=== PATIENT | female | born 1975 | race Caucasian/White ===

== ENCOUNTER 2017-03-26 08:48 | Inpatient (IN) | payer OTHER ==
[2017-03-22 16:58] VITALS: BMI 41.1
--- NOTE | 2017-03-26 10:57 | HP ---
Admitting History and Physical - Admission Chief Complaint: Morbid obesity History of Present Illness: 41 female presents for vertical sleeve gastrectomy History Source: Patient Limitations to Obtaining History: No Limitations - Past Medical History ...LMP: 03/19/17 - Past Surgical History Past Surgical History: Yes: - Smoking History Smoking history: Former smoker Have you smoked in the past 12 months: No Aproximately how many cigarettes per day: 1 If you are a former smoker, when did you quit?: 5YRS - Alcohol/Substance Use Hx Alcohol Use: No Home Medications - Allergies Allergies/Adverse Reactions: Allergies Allergy/AdvReac Type Severity Reaction Status Date / Time No Known Drug Allergies Allergy Verified 03/22/17 17:08 SURGICAL TAPE Allergy "BURN-LIKE Uncoded 03/22/17 17:08 RASH" - Home Medications Home Medications: Ambulatory Orders No Home Medications 0 dose .ROUTE UTDICT 03/30/12 Family Disease History - Family Disease History Family History: Unremarkable Review of Systems - Review of Systems Constitutional: denies: Chills, Fever HENT: reports: No Symptoms Neck: reports: No Symptoms Cardiovascular: denies: Chest Pain Respiratory: denies: Cough Gastrointestinal: denies: Abdominal Pain Neurological: denies: Change in LOC Pain Intensity: 0 Physical Examination Vital Signs: Vital Signs Temperature 98.4 F 03/26/17 09:25 Pulse Rate 95 H 03/26/17 09:25 Respiratory Rate 18 03/26/17 09:25 Blood Pressure 146/81 03/26/17 09:25 O2 Sat by Pulse Oximetry (%) 100 03/26/17 09:37 Constitutional: Yes: Calm HENT: Yes: WNL Neck: Yes: Supple Cardiovascular: Yes: Regular Rate and Rhythm Respiratory: Yes: CTA Bilaterally Gastrointestinal: Yes: Soft, Abdomen, Obese. No: Tenderness Extremities: Yes: WNL Neurological: Yes: Alert, Oriented Problem List - Problems (1) Morbid obesity due to excess calories Code(s): E66.01 - MORBID (SEVERE) OBESITY DUE TO EXCESS CALORIES Assessment/Plan Robotic vertical sleeve gastrectomy possible EGD possible liver biopsy
[2017-03-26] MEDS ORDERED: ceFAZolin SODIUM 1 GM VIAL IVPB ONE (12:20)
[2017-03-26] MEDS ORDERED: HYDROmorphone HCL/PF 1 MG/ML VIAL (FOR PYXIS CHARGING ONLY) ONE ×2 (14:05→15:03)
--- NOTE | 2017-03-26 14:33 | OP ---
Operative Note - Note: Operative Date: 03/26/17 Pre-Operative Diagnosis: Morbid obesity Operation: Robotic vertical sleeve gastrectomy, EGD Post-Operative Diagnosis: Same as Pre-op Surgeon: Charanjit Kahn Director Targeted Marketing: Odette Duckworth Anesthesia: General Specimens Removed: Greater curvature of the stomach Estimated Blood Loss (mls): 30 Drains & Tubes with Location: 36 fr Bougie Operative Report Dictated: Yes
[2017-03-26] MEDS ORDERED: ONDANSETRON 4 MG/2 ML VIAL IVPUSH PRN (14:36)
[2017-03-26] MEDS ORDERED: LACTATED RINGERS SOLUTION 1,000 ML IV SCH (14:45)
[2017-03-26] MEDS ORDERED: SODIUM CHLORIDE 1,000 ML IV SCH (14:45)
[2017-03-26] MEDS ORDERED: ceFAZolin SODIUM 1 GM VIAL ONE (14:59)
[2017-03-26] MEDS ORDERED: MIDAZOLAM HCL 2 MG/2 ML SINGLE DOSE VIAL ONE (14:59)
[2017-03-26] MEDS ORDERED: DEXAMETHASONE SOD PHOSPHATE 4 MG/1 ML VIAL ONE (14:59)
[2017-03-26] MEDS ORDERED: SODIUM CHLORIDE 0.9% P/F 10 ML VIAL IJ ONE (15:00)
[2017-03-26] MEDS ORDERED: DESFLURANE GAS 240 ML BOTTLE IH ONE (15:01)
[2017-03-26] MEDS ORDERED: ACETAMINOPHEN INJECTION 100 ML IVPB ONE (15:03)
[2017-03-26] MEDS ORDERED: PROPOFOL 20 ML ONE (15:05)
[2017-03-26] MEDS: ACETAMINOPHEN 1000 MG/100 ML VIAL (NON FORMULARY) IVPB SCH ×2 (15:05→23:29)
[2017-03-26] MEDS ORDERED: SUCCINYLCHOLINE CHLORIDE 200 MG/10 ML VIAL ONE (15:06)
[2017-03-26] MEDS ORDERED: METOCLOPRAMIDE HCL INJECTION 10 MG/2 ML VIAL ONE (15:27)
[2017-03-26] MEDS: METOCLOPRAMIDE HCL INJECTION 10 MG/2 ML VIAL IVPUSH SCH ×2 (15:28→20:36)
--- NOTE | 2017-03-26 15:31 | SPEC ---
DATE OF OPERATION: 03/26/2017 SURGEON: Charanjit Kahn MD NUCLEAR PLANT INSTRUMENT TECHNICIAN: MARCELO Lozada PREOPERATIVE DIAGNOSIS: Morbid obesity. POSTOPERATIVE DIAGNOSIS: Morbid obesity. PROCEDURE: Robotic vertical sleeve gastrectomy and upper endoscopy. SPECIMEN: Greater curvature of the stomach. ESTIMATED BLOOD LOSS: 30 mL TUBES: A 36-Uzbek bougie. DRAINS: None. ANESTHESIA: GET. REASON FOR PROCEDURE: This is a 41-year-old female who presented to the hospital for weight loss options. After describing different options, she decided to proceed with a robotic vertical sleeve gastrectomy. RISKS AND BENEFITS: After describing the different options for management of weight loss, the patient decided to proceed with a robotic laparoscopic, possible open vertical sleeve gastrectomy. The patient was seen by the respective subspecialties and cleared for surgery. The risks and benefits of the procedure were explained. These included bleeding, infection, hernia, ID, DVT, PE, injury to surrounding structures including the liver, colon, bowel, spleen, esophagus, vessel injury, nerve injury, weight regain, gastric leak, staple line leak, sleeve leak, obstruction, vitamin deficiency, hair loss, and as some of the possible complications. The patient understood and signed informed consent. DESCRIPTION OF PROCEDURE: The patient was placed supine on the operating room table. The patient underwent general endotracheal intubation. A England catheter was inserted by the nursing staff. The arms were brought out at 90 degrees and secured. A foot board was placed, and the legs were secured laterally with padding. The abdomen was prepped and draped in the usual sterile fashion. Timeout was performed. An incision was made superior and to the left of the umbilicus. A Veress needle was inserted. Pneumoperitoneum was established. Subsequently, the Veress needle was removed. An 8-mm optical robotic trocar was placed under direct visualization with the laparoscope. Inspection of the abdominal cavity was performed. An 8-mm trocar was then placed in the left abdominal wall approximately 6 to 7 cm to the left of the initial trocar. A 12-mm robotic trocar was then placed in the right abdominal wall approximately 6 to 7 cm to the right of the initial trocar and an 8-mm robotic trocar placed 6 to 7 cm lateral to the 12-mm trocar. A stab wound was made in the subxiphoid area and a Gabriela clamp inserted and removed to dilate the tract. A Matthew liver retractor was inserted. The post was secured at the bedside by the nursing staff. The patient was placed in steep reverse Trendelenburg position, and the Matthew liver retractor was used to secure the liver towards the anterior abdominal wall. The robot was brought over the field and docked. Dissection was then performed at the console. The pylorus was identified and 6 cm proximal to it, the lesser sac was entered using the vessel sealer. From this point cephalad, all lateral attachments to the greater curvature of the stomach, including the short gastric vessels, were ligated using the vessel sealer towards the gastrosplenic and gastrophrenic ligaments. Once this was done in its entirety, all tubes within the nasal or oropharyngeal cavity, including a temperature probe, were confirmed to have been removed by Anesthesia. The bougie was then inserted by Anesthesia. Transection of the stomach was then begun, staying adjacent to the bougie but away from the angularis. Transection of the stomach was performed near the portion of the stomach where the lesser sac was entered. Two robotic green geovanna were used at this location. Robotic blue geovanna were then used for the remainder of the transection until the greater curvature of the stomach was fully transected. Again, this was done staying close to the bougie. Care was taken to stay away from the angle of His cephalad. The staple line was then inspected. Hemostasis was identified. A leak test was then performed. The stomach was clamped distally to the staple line. Irrigation solution was placed in the left upper quadrant and air insufflated by Anesthesia into the sleeve. No leaks were identified and no obstruction was identified. This was done throughout the entirety of the staple line. At this point, the irrigation solution was suctioned and again hemostasis noted. The robotic instruments were then removed. The robot was undocked and removed from the operative field. The 12-mm robotic trocar was removed and the specimen removed from this site using a sponge stick vines. The specimen was inspected and the Veress needle inserted. The specimen insufflated adequately and no leak was identified. The staple line was noted to be straight and intact. A Garett-Trisha device was then used to close the fascia with a 0 Vicryl suture at this site. The liver retractor was removed under direct visualization. Pneumoperitoneum was desufflated, and the fascial suture was secured. Hemostasis was noted at all incision sites, and Marcaine was injected at all incision sites. All incision sites were closed using 4-0 Biosyns. Sterile dressings were applied. The patient tolerated the procedure well and was transferred to the recovery room in stable condition, with the England catheter intact. The patient was sent to the telemetry unit for monitoring. In addition, in order to further assess for a leak or obstruction, upper endoscopy was performed. The entirety of the esophagus, GE junction, staple line to the level of the pylorus were inspected. No obstruction or leak was identified. The stomach was suctioned, and the scope was fully removed. The patient tolerated the procedure well and was transferred to recovery room in stable condition. Latricia [id number]
[2017-03-26 16:06] LABS: MCH 31.5 pg (25.7-33.7); MCHC 35.1 g/dl (32.0-36.0); MEAN CELL VOLUME 89.8 fl (80-96); PLATELET COUNT 226 K/MM3 (134-434); RDW 12.5 % (11.6-15.6); WHITE BLOOD COUNT 12.3 K/mm3 (4.0-10.0)
[2017-03-26 16:32] LABS: ALBUMIN 3.8 g/dl (3.4-5.0); ANION GAP 13 (8-16); CALCIUM 8.2 mg/dL (8.5-10.1); CO2 21 mmol/L (21-32); GLUCOSE,RANDOM 103 mg/dL (74-106)
[2017-03-26] MEDS ORDERED: NEOSTIGMINE METHYLSULFATE 0.5 MG/ML - 10 ML MDV ONE (16:36)
[2017-03-26] MEDS ORDERED: GLYCOPYRROLATE 0.2 MG/1 ML VIAL ONE (16:37)
[2017-03-26 16:39] LABS: ALK PHOS 61 U/L (45-117); BILIRUBIN,TOTAL 1.8 mg/dL (0.2-1.0); CREATININE 0.9 mg/dL (0.55-1.02); SGOT/AST 33 U/L (15-37); SGPT/ALT 49 U/L (12-78); TOT PROT 6.9 g/dl (6.4-8.2)
--- NOTE | 2017-03-26 17:13 | SURG ---
Surgery Physicist Cryogenics Note Physicist Cryogenics: Odette Duckworth PA-C Date of Service: 03/26/17 Diagnosis: Morbid obesity Procedure: Robotic vertical sleeve gastrectomy, EGD I was present for the entirety of the operative procedure. For further detail, please refer to operative report. Visit type - Case Type Case Type: Scheduled Admission - Emergency Emergency Visit: No - New patient This patient is new to me today: Yes Date on this admission: 03/26/17
[2017-03-26] MEDS: ONDANSETRON 4 MG/2 ML VIAL IVPUSH SCH (20:36)
[2017-03-26] MEDS: ENOXAPARIN NA (PORCINE) 40 MG/0.4 ML DISP.SYRIN SQ SCH (20:59)
[2017-03-26] MEDS: FAMOTIDINE 20 MG/50 ML IVPB 50 ML IVPB SCH (21:00)
[2017-03-26] MEDS: HYDROmorphone HCL CARPU-JECT 1 MG/1 ML DISP.SYRIN IVPB PRN (23:28)
[2017-03-27] MEDS: ONDANSETRON 4 MG/2 ML VIAL IVPUSH SCH ×6 (01:30→21:04)
[2017-03-27] MEDS: METOCLOPRAMIDE HCL INJECTION 10 MG/2 ML VIAL IVPUSH SCH ×4 (03:53→21:04)
[2017-03-27] MEDS: ACETAMINOPHEN 1000 MG/100 ML VIAL (NON FORMULARY) IVPB SCH (03:54)
[2017-03-27 08:20] LABS: MCH 31.2 pg (25.7-33.7); MEAN CELL VOLUME 89.2 fl (80-96); MEAN PLT VOLUME 9.6 fl (7.5-11.1); PLATELET COUNT 220 K/MM3 (134-434); RDW 12.4 % (11.6-15.6); WHITE BLOOD COUNT 10.5 K/mm3 (4.0-10.0)
[2017-03-27] MEDS: FAMOTIDINE 20 MG/50 ML IVPB 50 ML IVPB SCH ×2 (09:27→21:03)
[2017-03-27] MEDS: ENOXAPARIN NA (PORCINE) 40 MG/0.4 ML DISP.SYRIN SQ SCH ×2 (09:27→21:06)
[2017-03-27 09:37] LABS: ALBUMIN 3.2 g/dl (3.4-5.0); ALK PHOS 52 U/L (45-117); ANION GAP 16 (8-16); BILIRUBIN,TOTAL 1.8 mg/dL (0.2-1.0); CO2 18 mmol/L (21-32); CREATININE 0.6 mg/dL (0.55-1.02); GLUCOSE,RANDOM 78 mg/dL (74-106); SGOT/AST 24 U/L (15-37); SGPT/ALT 37 U/L (12-78); TOT PROT 6.2 g/dl (6.4-8.2)
[2017-03-27 09:58] LABS: CALCIUM 7.5 mg/dL (8.5-10.1)
--- NOTE | 2017-03-27 10:05 | PN ---
Progress Note (short form) - Note Progress Note: Pt with complaints of RUQ pain/shoulder pain. Slight nausea no emesis. Assisted with getting oob to chair this am. Completed her study this am. Vital Signs Period Temp Pulse Resp BP Sys/Humphrey Pulse Ox Last 24 Hr 98.4 F-98.6 F 81-101 16-20 122-169/75-99 93-100 GEN: A&0x3, NAD CV:RR, mild tachycardic Lungs: CTA b/l ABD: soft, non-distended, mild RUQ/abd tendneress. Inc c/d/i mild ecchymosis to right mid line incision. UGI: no extravasation/leak or obstruction CBC, BMP 03/27/17 05:35 03/27/17 05:35 A/P: 41 yo female s/p Rotobic asissted sleeve gastrectomy Begin POD#1 bariatric diet OOB to chair ambulate DVT ppx with SCD/ambulate/lovenox SQ Oral pain management <Odette Duckworth - Last Filed: 03/27/17 10:06> - Note Progress Note: Agree POD 1 Pain controlled No nausea Abd soft UGI- no leak/obstruction Clears OOB Discharge home <Charanjit Kahn - Last Filed: 03/27/17 11:17> Problem List - Problems (1) Morbid obesity due to excess calories Code(s): E66.01 - MORBID (SEVERE) OBESITY DUE TO EXCESS CALORIES <Charanjit Kahn - Last Filed: 03/27/17 11:17>
[2017-03-27] MEDS ORDERED: SODIUM CHLORIDE 1,000 ML IV SCH (10:15)
--- NOTE | 2017-03-27 10:53 | PN ---
Progress Note (short form) - Note Progress Note: Post op day#1.S/P Gastriv sleve placement under GA uneventful.Patient stable and c/o some pain for which she is on medication.No any anesthesia related problem.Patient Dc from the anesthesia care.
--- NOTE | 2017-03-27 11:18 | DS ---
Physical Examination Vital Signs: Vital Signs Temperature 97.8 F 03/27/17 10:00 Pulse Rate 101 H 03/27/17 10:00 Respiratory Rate 20 03/27/17 10:00 Blood Pressure 179/100 03/27/17 10:00 O2 Sat by Pulse Oximetry (%) 95 03/27/17 10:00 Constitutional: Yes: Calm HENT: Yes: WNL Neck: Yes: Supple Cardiovascular: Yes: Regular Rate and Rhythm Respiratory: Yes: CTA Bilaterally Gastrointestinal: Yes: Soft Neurological: Yes: Alert, Oriented Labs: CBC, BMP 03/27/17 05:35 03/27/17 05:35 Discharge Summary Reason For Visit: OBSTRUCTIVE SLEEP APNEA (ADULT) (PEDIATRIC) Current Active Problems Morbid obesity due to excess calories (Acute) Procedures: Principal: Vertical sleeve gastrectomy, EGD Condition: Stable - Instructions Diet, Activity, Other Instructions: [address] [facility] Charanjit Kahn M.D. [address] [place] [address], [address] [facility] [place] [address] Robotic, Bariatric and General Surgery Postoperative Instructions for Bariatric Surgery Activity: Resume normal everyday activity as tolerated. You may walk and climb stairs without any limitation. We encourage you to walk as often as you can Do not lift anything more than 10 pounds for 8 weeks. At that time, you can return to full activity, including the gym, without limitation. Do not drive a motor vehicle while taking prescribes narcotic pain medication. Wound Care: If you have a bandage in place, leave it on for 3 days. At that time you may remove the outer bandage. If there are strips of tape on the skin after removing the outer bandage, leave them in place. They will fall off by themselves. Do not remove them. If there is clear glue on the skin after removing the outer bandage, leave it in place. Do not pick at it or peel it off. You may shower after taking the outer bandage off, 3 days after your surgery. If incisions become red, warm or open, please call the office. Diet: Continue a sugar-free, non-carbonated Clear liquid diet three times a day for the first week-Stage I diet. In addition, you should drink 8 ounces of water every hour. When drinking, sips should be slow and steady, not large and quick. After the first week, call the office to be advanced to the next dietary stage. Do not advance stages until instructed. Your diet will be advanced over the phone each week. Medications/Pain Management: You may resume previous medications unless told otherwise. The pills may be swallowed whole or broken if scored. You may take the prescribed narcotic pain medication as needed. If the narcotic medication is not needed for pain control, you may take Tylenol. Avoid all other pain medications including Advil, Ibuprofen, Motrin, Aspirin, Naprosyn, Aleve, Celebrex. You will receive Pepcid. Please take this twice a day as prescribed. Dizziness,Headaches/Gas Pain: Make sure you are getting enough fluids daily. Patients on diuretics or water pills may need medication adjusted. Some fluids such as broth or Gatorade may help. Gas pains are common in the first few weeks after surgery. At times they can be worse than surgical pain. Walking can help. You can also use Mylanta, Maalox, or Gas-X. Vomiting/Nausea: This may occur if you eat too fast, don't chew, or eat too much. Go back to fluids. If the vomiting or nausea persists, call the office. Constipation/Diarrhea: You may experience a change in bowel habits. Many things affect this, including a decrease in food intake, not enough fluid and taking pain medication. Some people experience diarrhea after the barium swallow in x-ray. If either persist, call the office. Follow up: Call the office at [phone] for an appointment 2 weeks after your surgical procedure. Disposition: HOME - Home Medications Comprehensive Discharge Medication List: Ambulatory Orders RX: No Home Medications 0 dose .ROUTE UTDICT 03/30/12 Famotidine [Pepcid] 20 mg PO BID #60 tablet 03/26/17 Oxycodone HCl/Acetaminophen [Percocet 5-325 mg Tablet] 1 - 2 tab PO Q6H #28 tab MDD 4 03/26/17
[2017-03-27] MEDS ORDERED: LOSARTAN 50MG/HCTZ 12.5MG 1 TAB (FP) PO ONE (15:30)
--- NOTE | 2017-03-27 16:55 | CON.CARD ---
Consult Consult Specialty:: Cardiology Referred by:: Dr. Kahn Reason for Consultation:: HTN post op - History of Present Illness Chief Complaint: HTN History of Present Illness: 41 year old woman h/o obesity s/p robotic sleeve gastrectomy yesterday was planned for dc home today but found to have severe uncontrolled HTN. Pt does not have a history of HTN. BP was normal without meds on outpatient preop visits. She was seen by Dr. Ma for preop cardiac evaluation, had an ETT that showed no ischemia and echo that showed overall normal structural heart. Pt seen and examined today in nad. pt states that she has approx 4/10 pain from surgery. no chest pain, sob, palpitations, no pnd, orthopnea, or LE edema. no lightheadedness, dizziness, syncope, near syncope. - History Source History Provided By: Patient, Family Member, Medical Record Limitations to Obtaining History: No Limitations - Past Medical History ...LMP: 03/19/17 - Past Surgical History Past Surgical History: Yes: - Alcohol/Substance Use Hx Alcohol Use: No - Smoking History Smoking history: Former smoker Have you smoked in the past 12 months: No Aproximately how many cigarettes per day: 1 If you are a former smoker, when did you quit?: 5YRS - Social History Usual Living Arrangement: With Spouse ADL: Independent History of Recent Travel: No Home Medications - Allergies Allergies/Adverse Reactions: Allergies Allergy/AdvReac Type Severity Reaction Status Date / Time No Known Drug Allergies Allergy Verified 03/22/17 17:08 SURGICAL TAPE Allergy "BURN-LIKE Uncoded 03/22/17 17:08 RASH" - Home Medications Home Medications: Ambulatory Orders No Home Medications 0 dose .ROUTE UTDICT 03/30/12 Famotidine [Pepcid] 20 mg PO BID #60 tablet 03/26/17 Oxycodone HCl/Acetaminophen [Percocet 5-325 mg Tablet] 1 - 2 tab PO Q6H #28 tab MDD 4 03/26/17 Family Disease History - Family Disease History Family History: Denies Review of Systems - Review of Systems Constitutional: denies: No Symptoms, Chills, Diaphoresis, Fever, Lethargy, Loss of Appetite, Malaise, Night Sweats, Unintentional Wgt. Loss, Weakness, Other Eyes: denies: No Symptoms, Blind Spots, Blurred Vision, Double Vision, Eye Pain , Floaters, Photophobia, Recent Change in Vision, Other HENT: denies: No Symptoms, Difficult Swallowing, Ear Discharge, Ear Pain, Epistaxis, Gingival Bleeding, Hearing Loss, Mouth Swelling, Nasal Congestion, Ocular Prosthesis, Throat Pain, Toothache, Ringing in Ears, Other Neck: denies: No Symptoms, Decreased ROM, Lumps, Pain on Movement, Stiffness, Swollen Glands, Tenderness, Other Cardiovascular: denies: No Symptoms, Chest Pain, Edema, Palpitations, Shortness of Breath, Other Respiratory: denies: No Symptoms, Cough, Exercise Intolerance, Hemoptysis, Orthopnea, PND, Snoring, SOB, SOB on Exertion, Wheezing, Other Gastrointestinal: reports: Abdominal Pain. denies: No Symptoms, Bloating, Constipation, Diarrhea, Dysphagia, Indigestion, Melena, Nausea, Rectal Bleeding , Vomiting, Vomiting Blood, Other Genitourinary: denies: No Symptoms, Burning, Discharge, Dysuria, Flank Pain, Frequency, Hematuria, Incontinence, Lesions, Menses, Pain, Testicular Mass, Testicular Pain, Testicular Swelling, Urgency, Vaginal Bleeding, Other Breasts: denies: No Symptoms Reported, See HPI, Breast Implants, Discharge from Nipple, Lumps, Pain, Skin Changes, Other Musculoskeletal: denies: No Symptoms, Back Pain, Crepitus, Decreased ROM, Extremity Pain, Joint Pain, Joint Swelling, Muscle Pain, Muscle Cramps, Muscle Weakness, Other Integumentary: denies: No Symptoms, Blister, Bruising, Change in Color, Eczema, Erythema, Incision, Lesions, Lump, Pallor, Pruritis, Rash, Wound, Other Neurological: denies: No Symptoms, Change in LOC, Change in Speech, Confusion, Dizziness, Headache, Incoordination, Numbness, Parasthesia, Pre-Existing Deficit , Seizure, Syncope, Tremors, Unsteady Gait, Weakness, Other Endocrine: denies: No Symptoms, Excessive Sweating, Flushing, Increased Hunger, Increased Thirst, Intolerance to Cold, Intolerance to Heat, Unexplained Weight Gain, Unexplained Weight Loss, Other Hematology/Lymphatic: denies: No Symptoms, Easily Bruised, Excessive Bleeding, Swollen Glands, Other Psychiatric: denies: No Symptoms, Altered Sleep Pattern, Anxiety, Depression, Hallucinations, Panic, Paranoia, Suicidal, Other Vital Signs: Vital Signs Temperature 99 F 03/27/17 14:46 Pulse Rate 111 H 03/27/17 14:46 Respiratory Rate 20 03/27/17 14:46 Blood Pressure 162/104 03/27/17 14:46 O2 Sat by Pulse Oximetry (%) 95 03/27/17 10:00 Constitutional: Yes: No Distress, Calm, Obese Eyes: Yes: WNL, Conjunctiva Clear, EOM Intact, PERRL HENT: Yes: WNL, Atraumatic, Normocephalic Neck: Yes: WNL, Supple, Trachea Midline Respiratory: Yes: WNL, Regular, CTA Bilaterally. No: Rales, Rhonchi, Wheezes Gastrointestinal: Yes: WNL, Normal Bowel Sounds, Soft. No: Distention, Tenderness Renal/: Yes: WNL Cardiovascular: Yes: Regular Rate and Rhythm. No: Bradycardia, Tachycardia, Pulse Irregular, Gallop, Rub, Varicosities JVD: No Carotid Bruit: No PMI: Non-Displaced Heart Sounds: Yes: S1, S2. No: Split S2, S3, S4, Clicks, Gallop, Rub, Bruit Murmur: No: Systolic Murmur, Diastolic Murmur Musculoskeletal: No: WNL, Back Pain, Joint Stiffness, Joint Swelling, Muscle Pain, Muscle Weakness, Other Extremities: Yes: WNL Edema: No Peripheral Pulses WNL: Yes Peripheral Pulses: 2+ Left Doralis Pedis, 2+ Right Dorsalis Pedis Integumentary: Yes: WNL Neurological: Yes: WNL, Alert, Oriented ...Motor Strength: WNL Psychiatric: Yes: WNL, Alert, Oriented - Other Data Labs, Other Data: CBC, BMP 03/27/17 05:35 03/27/17 05:35 ekg reviewed Echo: Report Reviewed Imaging - Results Chest X-ray: Report Reviewed, Image Reviewed EKG: Report Reviewed, Image Reviewed Other: Report Reviewed, Image Reviewed Assessment/Plan HTN-no reported history of chronic HTN -most likely elevated due to post op state, pain, IV fluids -given 1 dose Losartan/HCTZ 50/12.5mg this afternoon -repeat BP 45min -recc pt stay overnight for close monitoring of her BP, she recently moved to [place] and would not be able to see a doctor to have her BP checked -recc pain control -DC IV fluids if possible -will order PRN anti-HTN meds
[2017-03-27] MEDS: oxyCODONE HCL 5 MG TABLET PO PRN (17:11)
[2017-03-27] MEDS: LABETALOL HCL 5 MG/1 ML (100MG/20 ML VIAL) IVPUSH PRN (21:01)
[2017-03-27] MEDS: ACETAMINOPHEN 325 MG TABLET (FP) PO PRN (21:04)
[2017-03-27] MEDS: HYDROmorphone HCL CARPU-JECT 1 MG/1 ML DISP.SYRIN IVPB PRN (21:05)
[2017-03-28] MEDS: ONDANSETRON 4 MG/2 ML VIAL IVPUSH SCH ×6 (02:12→21:22)
[2017-03-28] MEDS: METOCLOPRAMIDE HCL INJECTION 10 MG/2 ML VIAL IVPUSH SCH ×4 (02:12→21:22)
[2017-03-28] MEDS: LABETALOL HCL 5 MG/1 ML (100MG/20 ML VIAL) IVPUSH PRN ×2 (08:34→16:27)
[2017-03-28] MEDS ORDERED: LOSARTAN 50MG/HCTZ 12.5MG 1 TAB (FP) PO ONE (10:15)
[2017-03-28] MEDS: ENOXAPARIN NA (PORCINE) 40 MG/0.4 ML DISP.SYRIN SQ SCH ×2 (10:19→21:23)
[2017-03-28] MEDS: FAMOTIDINE 20 MG/50 ML IVPB 50 ML IVPB SCH ×2 (10:19→21:22)
--- NOTE | 2017-03-28 10:51 | PN ---
Progress Note (short form) - Note Progress Note: POD#2 Pt with any nausea or emesis. No flatus or BM, tolerating liquid diet. OOB and ambulating. Seen by cardiology for elevated BP. No CP/SOB. Vital Signs Period Temp Pulse Resp BP Sys/Humphrey Pulse Ox Last 24 Hr 98.6 F-100.3 F 100-111 18-20 124-169/78-108 94-95 GEN: A&0x3, NAD CV: RRR Lungs: CTA b/l ABD: soft, non-distended inc tenderness. inc c/d/i LE: no calf tendnerness or swelling noted b/l A/P: POD#2 s/p robotic sleeve gastrectomy Continue oral diet Cardiology consult noted-giving oral medications and will continue to observe DVT ppx with SCD/lovenox and ambulating IVF held Oral pain managment as needed
[2017-03-28] MEDS ORDERED: oxyCODONE HCL 5 MG TABLET PO PRN (11:34)
--- NOTE | 2017-03-28 11:45 | PN ---
Progress Note, Physician History of Present Illness: Seen and examined today in nad. No overnight events. Mild post op discomfort. - Current Medication List Current Medications: Active Medications Acetaminophen (Tylenol -) 325 mg PO Q4H PRN PRN Reason: FEVER OR PAIN Last Admin: 03/27/17 21:04 Dose: 325 mg Enoxaparin Sodium (Lovenox -) 40 mg SQ BID [facility] Last Admin: 03/28/17 10:19 Dose: 40 mg Hydromorphone HCl (Dilaudid Injection -) 1 mg IVPB Q3H PRN PRN Reason: PAIN Last Admin: 03/27/17 21:05 Dose: 1 mg Famotidine/Sodium Chloride (Pepcid 20 Mg Premixed Ivpb -) 50 mls @ 100 mls/hr IVPB BID [facility] Last Admin: 03/28/17 10:19 Dose: 100 mls/hr Labetalol HCl (Normodyne Injection -) 10 mg IVPUSH Q4H PRN PRN Reason: HYPERTENSION Last Admin: 03/28/17 08:34 Dose: 10 mg Metoclopramide HCl (Reglan Injection -) 10 mg IVPUSH Q6H-IV [facility] Last Admin: 03/28/17 08:39 Dose: 10 mg Ondansetron HCl (Zofran Injection) 4 mg IVPUSH Q4H [facility] Last Admin: 03/28/17 08:40 Dose: 4 mg Oxycodone HCl (Roxicodone -) 5 mg PO Q4H PRN PRN Reason: PAIN Last Admin: 03/27/17 17:11 Dose: 5 mg Oxycodone HCl (Roxicodone -) 10 mg PO Q4H PRN PRN Reason: PAIN LEVEL 6-10 - Objective Vital Signs: Vital Signs Temperature 98.1 F 03/28/17 08:00 Pulse Rate 100 H 03/28/17 08:00 Respiratory Rate 18 03/28/17 08:00 Blood Pressure 145/96 03/28/17 09:25 O2 Sat by Pulse Oximetry (%) 94 L 03/27/17 22:00 Constitutional: Yes: No Distress, Calm Eyes: Yes: Conjunctiva Clear, EOM Intact, PERRL HENT: Yes: Atraumatic, Normocephalic Neck: Yes: Supple, Trachea Midline Cardiovascular: Yes: Regular Rate and Rhythm, S1, S2. No: Bradycardia, Tachycardia, Pulse Irregular, Bruit, JVD, Gallop, Murmur, Rub, S3, S4, Varicosities Respiratory: Yes: Regular, CTA Bilaterally. No: Rales, Rhonchi, Wheezes Gastrointestinal: Yes: Normal Bowel Sounds, Soft, Tenderness (mild). No: Distention Edema: No Peripheral Pulses WNL: Yes Peripheral Pulses: Left Doralis Pedis: 2+, Right Dorsalis Pedis: 2+ Integumentary: Yes: WNL Neurological: Yes: Alert, Oriented Psychiatric: Yes: Alert, Oriented Labs: CBC, BMP 03/27/17 05:35 03/27/17 05:35 - ....Imaging Chest X-ray: Report Reviewed, Image Reviewed EKG: Report Reviewed, Image Reviewed Other: Report Reviewed, Image Reviewed (tele-nsr, episodes of sinus tach intermittently 130s, currently NSR 70s) Assessment/Plan HTN-no reported history of chronic HTN -most likely elevated due to post op state, discomfort, IV fluids -intermittent sinus tachycardia and intermittent HTN episodes consistent with this -given 1 dose Losartan/HCTZ 50/12.5mg yesterday, and received 2 doses prn IV Labetalol overnight. -will give another dose of Losartan/HCTZ 50/12.5mg this am and plan to continue this as outpatient likely for short course -if BP adequately controlled after this am meds pt would be acceptable for discharge. -I discussed with her the importance of close monitoring of her BP and she agrees to get a new home BP cuff and to call me if readings are elevated at home and we can adjust her meds over the phone. Additionally she agrees to come to the office within 1 week. -pt does not have a history of chronic HTN and thus she may not require chronic medical rx for this and I have advised her that as she recovers from surgery her BP may actually go too low on medication thus the importance of home monitoring and close outpatient f/up -cont adequate pain control
--- NOTE | 2017-03-28 11:58 | PATH ---
Surgical Pathology Report Patient Name: LILO HUDDLESTON [facility]. Rec. #: [id number] /Age/Gender: 1975 (Age: 41) / F Account: [id number] Location: 4 PEDS/ADOL Taken: 03/26/2017 Received: 03/27/2017 Reported: 03/28/2017 Physicians: Charanjit Kahn M.D. Specimen(s) Received GREATER CURVATURE OF STOMACH Clinical History Morbid obesity Final Diagnosis STOMACH, GREATER CURVATURE, SLEEVE GASTRECTOMY: PORTION OF GASTRIC FUNDUS WITH MODERATE CHRONIC GASTRITIS. IMMUNOSTAIN FOR H. PYLORI IS POSITIVE ([employer]ISMS). Electronically Signed Loyd Leahy M.D. Gross Description Received in formalin, labeled "greater curvature of the stomach," is a 160 gram, 18.0 x 5.0 x 3.0 cm. portion of stomach with a stapled margin of resection. The serosa is schaffer-rivas with minimal attached fat. The mucosa is schaffer-pink with normal folds. No mucosal masses are identified. Medication Coordinator sections are submitted in one cassette. /03/27/2017 saudi03/27/2017
[2017-03-28] MEDS ORDERED: NIFEdipine E.R. 30 MG TABLET (FP) PO SCH (12:00)
[2017-03-28] MEDS: LABETALOL HCL 200 MG TABLET (FP) PO SCH ×2 (17:23→21:22)
[2017-03-28] MEDS: oxyCODONE HCL 5 MG TABLET PO PRN (17:27)
[2017-03-28] MEDS: ACETAMINOPHEN 325 MG TABLET (FP) PO PRN (17:28)
[2017-03-29] MEDS: ONDANSETRON 4 MG/2 ML VIAL IVPUSH SCH ×2 (01:45→05:01)
[2017-03-29] MEDS: METOCLOPRAMIDE HCL INJECTION 10 MG/2 ML VIAL IVPUSH SCH (03:13)
[2017-03-29 05:53] VITALS: TEMP 99.1
[2017-03-29 07:59] VITALS: BP 120/69; PULSE 92
--- NOTE | 2017-03-29 08:41 | PN ---
Progress Note, Physician History of Present Illness: seen and examined today in nad. states she is feeling better. did have an episode of facial flushing and anxiousness yesterday afternoon when BP found to be elevated. no events overnight. - Current Medication List Current Medications: Active Medications Acetaminophen (Tylenol -) 325 mg PO Q4H PRN PRN Reason: FEVER OR PAIN Last Admin: 03/28/17 17:28 Dose: 325 mg Enoxaparin Sodium (Lovenox -) 40 mg SQ BID [facility] Last Admin: 03/28/17 21:23 Dose: 40 mg Hydromorphone HCl (Dilaudid Injection -) 1 mg IVPB Q3H PRN PRN Reason: PAIN Last Admin: 03/27/17 21:05 Dose: 1 mg Famotidine/Sodium Chloride (Pepcid 20 Mg Premixed Ivpb -) 50 mls @ 100 mls/hr IVPB BID [facility] Last Admin: 03/28/17 21:22 Dose: 100 mls/hr Labetalol HCl (Normodyne Injection -) 10 mg IVPUSH Q4H PRN PRN Reason: HYPERTENSION Last Admin: 03/28/17 16:27 Dose: 10 mg Labetalol HCl (Normodyne -) 200 mg PO BID [facility] Last Admin: 03/28/17 21:22 Dose: 200 mg Metoclopramide HCl (Reglan Injection -) 10 mg IVPUSH Q6H-IV [facility] Last Admin: 03/29/17 03:13 Dose: 10 mg Nifedipine (Procardia Xl -) 30 mg PO DAILY [facility] Last Admin: 03/28/17 12:07 Dose: 30 mg Ondansetron HCl (Zofran Injection) 4 mg IVPUSH Q4H [facility] Last Admin: 03/29/17 05:01 Dose: 4 mg Oxycodone HCl (Roxicodone -) 5 mg PO Q4H PRN PRN Reason: PAIN Last Admin: 03/28/17 17:27 Dose: 5 mg Oxycodone HCl (Roxicodone -) 10 mg PO Q4H PRN PRN Reason: PAIN LEVEL 6-10 - Objective Vital Signs: Vital Signs Temperature 99.1 F 03/29/17 05:00 Pulse Rate 92 H 03/29/17 07:59 Respiratory Rate 18 03/29/17 07:59 Blood Pressure 120/69 03/29/17 07:59 O2 Sat by Pulse Oximetry (%) 95 03/28/17 21:00 Constitutional: Yes: No Distress, Calm, Obese Eyes: Yes: Conjunctiva Clear, EOM Intact, PERRL HENT: Yes: Atraumatic, Normocephalic Neck: Yes: Supple, Trachea Midline Cardiovascular: Yes: Regular Rate and Rhythm, S1, S2. No: Bradycardia, Tachycardia, Pulse Irregular, Bruit, JVD, Gallop, Murmur, Rub, S3, S4, Varicosities Respiratory: Yes: Regular, CTA Bilaterally. No: Rales, Rhonchi, Wheezes Gastrointestinal: Yes: Normal Bowel Sounds, Soft. No: Distention, Tenderness Musculoskeletal: Yes: WNL Extremities: Yes: WNL Edema: No Peripheral Pulses WNL: Yes Peripheral Pulses: Left Doralis Pedis: 2+, Right Dorsalis Pedis: 2+ Integumentary: Yes: WNL Neurological: Yes: Alert, Oriented Psychiatric: Yes: Alert, Oriented Labs: CBC, BMP 03/27/17 05:35 03/27/17 05:35 - ....Imaging Chest X-ray: Report Reviewed, Image Reviewed EKG: Report Reviewed, Image Reviewed Other: Report Reviewed, Image Reviewed (tele-nsr, sinus tach, currently nsr) Assessment/Plan HTN-no reported history of chronic HTN -most likely elevated due to post op state, discomfort, IV fluids -intermittent sinus tachycardia and intermittent HTN episodes consistent with this -BP did not respond to Losartan/HCTZ but quickly responded and normalized when given Labetalol -Pt is acceptable from a cardiac standpoint for discharge home today -I again discussed with her the importance of close monitoring of her BP and she agrees to get a new home BP cuff and to call me if readings are elevated at home and we can adjust her meds over the phone. Additionally she agrees to come to the office within 1 week. -pt does not have a history of chronic HTN and thus she may not require chronic medical rx for this and I have advised her that as she recovers from surgery her BP may actually go too low on medication thus the importance of home monitoring and close outpatient f/up. I gave her parameters for home to take extra dose of Labetalol if SBP >160mmHg or DBP >100mmHg and to not take the Labetalol if SBP <100mmHg. -cont adequate pain control -Will plan for work up of secondary causes of HTN as outpatient specifically evaluation for pheochromocytoma given the episodes of accelerated HTN and tachycardia and facial flushing post op, will also plan for renal doppler US to evaluate for renal artery stenosis
== END 2017-03-29 10:42 | disposition home or self-care (01) | DRG 621 ==
LOC: JSAMEDAYSX 08:48 → J4S 17:02
PROVIDERS: ADMIT Surgery; ATTEND Surgery
PROC: 8E0W0CZ Robotic Assisted Procedure of Trunk Region, Open Approach (ICD-10-PCS; 2017-03-26)
PROC: 0DJ08ZZ Inspection of Upper Intestinal Tract, Via Natural or Artificial Opening Endoscopic (ICD-10-PCS; 2017-03-26)
PROC: 0DB60Z3 Excision of Stomach, Open Approach, Vertical (ICD-10-PCS; principal; 2017-03-26 10:30)
DX: E66.01 Morbid (severe) obesity due to excess calories (principal); Z87.891 Personal history of nicotine dependence; Z68.41 Body mass index [BMI] 40.0-44.9, adult; I10 Essential (primary) hypertension; R00.0 Tachycardia, unspecified
CPT/HCPCS: 36415; 74241-TC; 80053; 84703; 85027; 86850; 86900; 86901; 88305-TC; 94010; 94760